=== PATIENT | female | born 1995 | race Caucasian/White ===

== ENCOUNTER 2020-09-23 13:37 | Outpatient (CLI) | payer MEDICARE ==
[2020-09-23 14:06] LABS: BASOPHILS % (AUTO) 1 % (0-1); EOSINOPHILS % (AUTO) 2 % (1-7); LYMPHOCYTES % (AUTO) 35 % (22-44); MEAN CORPUSCULAR HEMOGLOBIN 28.4 pg (27.0-34.8); MEAN CORPUSCULAR HGB CONC 32.8 g/dL (32.4-35.8); MEAN PLATELET VOLUME 7.5 fL (7.4-10.4); MONOCYTES % (AUTO) 6 % (2-9); NEUTROPHILS % (AUTO) 56 % (42-75); PLATELET COUNT 228 x10^3/uL (130-400); RED BLOOD COUNT 5.07 x10^6/uL (3.82-5.3); RED CELL DISTRIBUTION WIDTH 14.9 % (9.6-15.2)
[2020-09-23 14:07] LABS: MD NO
[2020-09-23 14:15] LABS: ALBUMIN 3.9 g/dL (3.4-5.0); ANION GAP 6 mmol/L (5-15); CALCIUM 8.9 mg/dL (8.5-10.1); CHLORIDE 111 mmol/L (98-107)
[2020-09-23 14:18] LABS: ALANINE AMINOTRANSFERASE 56 U/L (12-78); ALKALINE PHOSPHATASE 78 U/L (45-117); BILIRUBIN,TOTAL 0.4 mg/dL (0.2-1.0); CREATININE 0.66 mg/dL (0.55-1.02); TOTAL PROTEIN 7.7 g/dL (6.4-8.2)
[2020-09-25 13:50] LABS: ANA SCREEN NEGATIVE (Negative)
== END 2020-09-23 23:59 | disposition home or self-care (01) ==
LOC: LAB 13:37
PROVIDERS: ATTEND Dermatology
DX: M12.9 Arthropathy, unspecified (principal); L50.3 Dermatographic urticaria; Z71.89 Other specified counseling
CPT/HCPCS: 36415; 80053; 82306; 82652; 85025; 86038